=== PATIENT | female | born 1995 | race Two or more races ===

== ENCOUNTER 2018-05-20 22:32 | Emergency (ER) | payer MEDICAID ==
[~2018-05-20] VITALS: Ht 157.5 cm; Wt 86.2 kg
[2018-05-20 23:04] VITALS: BP 145/96
== END 2018-05-21 02:33 | disposition left against medical advice (07) ==
LOC: ER 22:32
DX: M79.604 Pain in right leg (principal); M54.5 Low back pain; M54.2 Cervicalgia; Z53.21 Procedure and treatment not carried out due to patient leaving prior to being seen by health care provider
CPT/HCPCS: 72040; 72100